=== PATIENT | male | born 1980 | race Caucasian/White ===

== ENCOUNTER 2017-04-09 16:23 | Emergency (ER) | payer OTHER ==
[2017-04-09 16:26] VITALS: BP 133/102; PULSE 117; RESP 20; TEMP 98; O2SAT 97
--- NOTE | 2017-04-09 17:09 | ED PDOC ---
HPI: Psych/Substance Abuse Time Seen by Provider: 04/09/17 16:39 Chief Complaint (Nursing): Medical Clearance Chief Complaint (Provider): Heroine Use History Per: Patient History/Exam Limitations: no limitations Onset/Duration Of Symptoms: Hrs (2) Additional History Per: EMS Additional Complaint(s): Asael is a 36 y/o male with a history of heroine abuse who was brought to the ED by EMS under [facility] police custody to be evaluated for drug abuse. Patient admits that 2 hours prior to arrival he used 2 bags of heroine, and has used 4 bags total over the course of the day. He denies suicidal or homicidal ideation. He reports that he was clean for 2 months, but because he had to work and had severe tooth pain not relieved by motrin he decided to use heroine. PMD: None Past Medical History Reviewed: Historical Data, Nursing Documentation, Vital Signs Vital Signs: Last Vital Signs Temp 98 F 04/09/17 16:25 Pulse 117 H 04/09/17 16:25 Resp 20 04/09/17 16:25 BP 133/102 H 04/09/17 16:25 Pulse Ox 97 04/09/17 16:25 - Medical History PMH: No Chronic Diseases - Surgical History Other surgeries: knee replacement - Family History Family History: States: No Known Family Hx - Social History Current smoker - smoking cessation education provided: Yes Alcohol: Social Drugs: Opiates (heroine) - Allergies Allergies/Adverse Reactions: Allergies Allergy/AdvReac Type Severity Reaction Status Date / Time No Known Allergies Allergy Verified 04/09/17 16:24 Review of Systems ROS Statement: Except As Marked, All Systems Reviewed And Found Negative Psych: Negative for: Suicidal ideation, Other (homicidal ideation) Physical Exam - Reviewed Nursing Documentation Reviewed: Yes Vital Signs Reviewed: Yes - Physical Exam Appears: Positive for: Well, No Acute Distress Head Exam: Positive for: ATRAUMATIC, NORMOCEPHALIC Skin: Positive for: Warm, Dry Eye Exam: Positive for: EOMI, PERRL Neck: Positive for: Painless ROM, Supple Cardiovascular/Chest: Positive for: Regular Rate, Rhythm. Negative for: Murmur Respiratory: Positive for: Normal Breath Sounds. Negative for: Respiratory Distress Gastrointestinal/Abdominal: Positive for: Soft. Negative for: Tenderness Back: Positive for: Normal Inspection. Negative for: Decreased ROM Extremity: Positive for: Normal ROM. Negative for: Deformity Lymphatic: Negative for: Adenopathy Neurologic/Psych: Positive for: Alert. Negative for: Motor/Sensory Deficits, Aphasia, Facial Droop - ECG O2 Sat by Pulse Oximetry: 97 (RA) Pulse Ox Interpretation: Normal Medical Decision Making Medical Decision Making: Time: 5:00 Initial Impression: Heroine abuse Initial Plan: --Crisis Evaluation --Patient currently alert and oriented x 3 with no signs of deep sedation. --Medically stable for police custody --Evaluated by Jose Juan BRENNAN who dw Dr Valdez. pt psychiatrically stable for police custody. Scribe Attestation: Documented by Talha Strickland, acting as a scribe for Ashley Marlow MD Provider Scribe Attestation: All medical record entries made by the Scribe were at my direction and personally dictated by me. I have reviewed the chart and agree that the record accurately reflects my personal performance of the history, physical exam, medical decision making, and the department course for this patient. I have also personally directed, reviewed, and agree with the discharge instructions and disposition. Disposition - Clinical Impression Clinical Impression: Opiate abuse, continuous - Disposition Referrals: [facility] [Outside] Disposition: Discharged/Transfer to Law Enforcement Disposition Time: 17:00 Condition: GOOD Additional Instructions: MEDICALLY AND PSYCHIATRICALLY STABLE FOR POLICE CUSTODY. Instructions: Narcotic Abuse (ED)
== END 2017-04-09 18:04 ==
LOC: H.ER 16:23
DX: F11.10 Opioid abuse, uncomplicated (principal)